=== PATIENT | male | born 1980 | race Two or more races ===

== ENCOUNTER 2016-11-26 07:47 | Emergency (ER) | payer MEDICAID ==
[~2016-11-26] VITALS: Ht 177.8 cm; Wt 81.6 kg
[~2016-11-26 07:47] MED LIST: CARV3.1240 PO; FURO40TA4; LEVE500T3; LISI-283; POTA10TA51 PO; SPIR100T; THIA100T43
[2016-11-26] MEDS ORDERED: SODIUM CHLORIDE 0.9% 1,000 ML IV ONE (08:06)
[2016-11-26] MEDS ORDERED: LORazepam 2MG/ML-1ML VIAL IV ONE (08:15)
[2016-11-26] MEDS ORDERED: LEVETIRACETAM INJ 1,000 MG in SODIUM CHL 0.9% 100 ML IV ONE (08:15)
[2016-11-26 08:43] LABS: Basophils # (auto) 0.1 uL; Basophils % (auto) 1.4 % (0.0-2.0); Eosinophils # (auto) 0.1 uL; Eosinophils % (auto) 0.9 % (0.0-7.0); Hematocrit 39.5 % (41.0-53.0); Hemoglobin 13.6 g/dL (13.5-17.5); Lymphocytes # (auto) 1.2 uL; Lymphocytes % (auto) 16.7 % (10.0-50.0); Mean Corpuscular Hemoglobin 32.8 pg (28.0-32.0); Mean Corpuscular Hgb Conc. 34.6 g/dL (32.0-36.0); Mean Corpuscular Volume 94.9 fL (80.0-100.0); Mean Platelet Volume 8.9 fL (7.4-10.4); Monocytes # (auto) 0.7 uL; Monocytes % (auto) 10.7 % (0.0-12.0); Neutrophils # (auto) 4.9 uL; Neutrophils % (auto) 70.3 % (37.0-80.0); Nucleated Red Blood Cells % 0.1 %; Platelet Count (auto) 175 10^3/uL (140-450); Red Cell Distribution Width 13.6 % (11.6-16.0)
[2016-11-26 09:05] LABS: Albumin 4.1 g/dL (3.4-5.0); Alkaline Phosphatase 81 U/L (45-117); Anion Gap 17 (5-15); Aspartate Aminotransferase 251 U/L (15-37); BUN/Creatinine Ratio 14.2; Bilirubin, Total 1.1 mg/dL (0.2-1.0); Blood Urea Nitrogen 19 mg/dL (7-18); Calcium 9.2 mg/dL (8.5-10.1); Carbon Dioxide 20 mmol/L (21-32); Chloride 95 mmol/L (98-107); GFR African American 77 mL/min; GFR Non-African American 63 mL/min; Glucose 100 mg/dL (74-106); Magnesium 1.2 mg/dL (1.6-2.6); Potassium 3.8 mmol/L (3.5-5.1); Sodium 132 mmol/L (136-145); Total Protein 8.7 g/dL (6.4-8.2)
[2016-11-26 11:10] LABS: Urine RBC None Seen /hpf (0 - 3)
[2016-11-26 11:46] LABS: Urine Blood 2+ /uL (Negative); Urine Color Yellow (Yellow); Urine Glucose Normal (Normal); Urine Hyaline Cast FEW /lpf (0 - 2); Urine Ketone 2+ (Negative); Urine Mucus FEW (None Seen); Urine Nitrite Negative (Negative); Urine Squamous Epithelial Cell FEW /hpf (<5); Urine pH 5.5 (5.0-8.0)
[2016-11-26 11:56] LABS: Urine Bilirubin Negative (Negative)
[2016-11-26] MEDS: MAGNESIUM SULFATE 1GM/100ML 100 ML IV SCH ×3 (13:57→16:25)
[2016-11-26 17:22] VITALS: BP 143/103
== END 2016-11-26 17:46 | disposition home or self-care (01) ==
LOC: EDBD 07:47 → ER 07:47
DX: G40.909 Epilepsy, unspecified, not intractable, without status epilepticus (principal); R42 Dizziness and giddiness; I11.0 Hypertensive heart disease with heart failure; I50.9 Heart failure, unspecified; F12.10 Cannabis abuse, uncomplicated; E83.42 Hypomagnesemia; E03.9 Hypothyroidism, unspecified; F17.210 Nicotine dependence, cigarettes, uncomplicated
CPT/HCPCS: 36415; 70450; 71020; 80053; 80307; 80320; 81001; 83735; 84443; 85025; 93005; 94761; 96361; 96365; 96366; 96367; 96375; 99285; J1953; J2060; J3475; J7030

== ENCOUNTER 2017-12-04 18:30 | Inpatient (IN) | payer SELFPAY ==
[~2017-12-04] VITALS: Ht 177.8 cm; Wt 93.3 kg
[2017-12-04 20:03] LABS: INR 1.5 (0.9-1.15); Partial Thromboplastin Time 27.5 sec (23.78-33.04); Prothrombin Time 15.7 sec (9.27-12.13)
[2017-12-04 20:06] LABS: Albumin 2.5 g/dL (3.4-5.0); BUN/Creatinine Ratio 23.1; Calcium 7.9 mg/dL (8.5-10.1); Magnesium 1.7 mg/dL (1.6-2.6); Potassium 3.9 mmol/L (3.5-5.1)
[2017-12-04 20:11] LABS: Bilirubin, Total 2.5 mg/dL (0.2-1.0); Total Protein 6.6 g/dL (6.4-8.2)
[2017-12-04 20:24] LABS: Hematocrit 45.3 % (41.0-53.0); Hemoglobin 15.1 g/dL (13.5-17.5); Mean Corpuscular Hemoglobin 31.7 pg (28.0-32.0); Mean Corpuscular Hgb Conc. 33.3 g/dL (32.0-36.0); Mean Corpuscular Volume 95.2 fL (80.0-100.0); Platelet Count (auto) 134 10^3/uL (140-450); Red Blood Cells 4.76 10^6/uL (4.5-5.90); Red Cell Distribution Width 17.6 % (11.8-14.3); White Blood Cell 4.6 10^3/uL (4.4-10.8)
[2017-12-04 20:33] LABS: Basophils % (manual) 0 (0.0-2.0); Blast Cells 0; Eosinophils % (manual) 0 (0-7); Myelocytes % 0; Promyelocytes % 0; Reactive Lymphocytes 0
[2017-12-04] MEDS ORDERED: FUROSEMIDE 20 MG/2 ML VIAL IV ONE (20:45)
[2017-12-04] MEDS ORDERED: SPIRONOLACTONE 25 MG TAB PO ONE (20:45)
[2017-12-04 20:55] LABS: Band Neutrophils % (manual) 3; Lymphocytes % (manual) 23 (10.0-50.0); Metamyelocytes % 1; Monocytes % (manual) 18 (0-12)
[2017-12-04] MEDS ORDERED: FUROSEMIDE 20 MG/2 ML VIAL ONE (20:57)
[2017-12-04] MEDS ORDERED: SPIRONOLACTONE 25 MG TAB ONE (20:58)
[2017-12-04 22:35] LABS: Urine WBC None Seen /hpf (0 - 3)
[2017-12-04 22:44] LABS: Urine Bacteria NONE SEEN /hpf (None Seen); Urine Blood Negative /uL (Negative); Urine Specific Gravity 1.005 (1.001-1.035)
[2017-12-04] MEDS ORDERED: NITROGLYCERIN 0.4 MG SL TAB SL PRN (23:15)
[2017-12-04] MEDS ORDERED: MORPHINE SULFATE 4 MG/ML SYR/VIAL IV PRN (23:15)
[2017-12-04] MEDS ORDERED: TEMAZEPAM 15 MG CAP PO PRN (23:15)
[2017-12-04] MEDS ORDERED: ONDANSETRON HCL 4 MG/2 ML VIAL IV PRN (23:15)
[2017-12-04] MEDS ORDERED: PANTOPRAZOLE 40 MG/10 ML VIAL IV ONE (23:30)
[2017-12-05 00:10] VITALS: BP 117/85
[2017-12-05 04:51] VITALS: BP 104/79
[2017-12-05] MEDS: FUROSEMIDE 20 MG/2 ML VIAL IV SCH ×2 (05:49→18:10)
[2017-12-05 05:56] LABS: Hematocrit 43.5 % (41.0-53.0); Hemoglobin 14.6 g/dL (13.5-17.5); Mean Corpuscular Hemoglobin 31.6 pg (28.0-32.0); Mean Corpuscular Hgb Conc. 33.5 g/dL (32.0-36.0); Mean Corpuscular Volume 94.1 fL (80.0-100.0); Platelet Count (auto) 131 10^3/uL (140-450); Red Blood Cells 4.62 10^6/uL (4.5-5.90); Red Cell Distribution Width 17.1 % (11.8-14.3); White Blood Cell 5.2 10^3/uL (4.4-10.8)
[2017-12-05 06:19] LABS: Albumin 2.6 g/dL (3.4-5.0); Calcium 8.6 mg/dL (8.5-10.1); Potassium 3.7 mmol/L (3.5-5.1); Total Protein 6.8 g/dL (6.4-8.2)
[2017-12-05 07:42] LABS: Band Neutrophils % (manual) 0; Basophils % (manual) 0 (0.0-2.0); Eosinophils % (manual) 0 (0-7); Metamyelocytes % 0
[2017-12-05 07:43] LABS: Blast Cells 0; Myelocytes % 0; Promyelocytes % 0; Reactive Lymphocytes 0
[2017-12-05 08:46] LABS: Lymphocytes % (manual) 30 (10.0-50.0); Monocytes % (manual) 16 (0-12)
[2017-12-05 09:00] VITALS: BP 120/95
[2017-12-05] MEDS: PANTOPRAZOLE 40 MG/10 ML VIAL IV SCH (09:35)
[2017-12-05] MEDS: LEVETIRACETAM 500 MG TAB PO SCH ×2 (09:36→22:28)
[2017-12-05] MEDS: SPIRONOLACTONE 25 MG TAB PO SCH (09:36)
[2017-12-05] MEDS: LISINOPRIL 5 MG TAB PO SCH (09:37)
[2017-12-05] MEDS: POTASSIUM CHL 10 Meq TABLET PO SCH (09:37)
[2017-12-05] MEDS: CARVEDILOL 3.125 MG TAB PO SCH ×2 (09:38→22:28)
[2017-12-05] MEDS ORDERED: LACTULOSE 20Gm/30ML SOLN PO SCH (10:00)
[2017-12-05 13:00] VITALS: BP 122/97
[2017-12-05 17:31] VITALS: BP 123/96
[2017-12-05 22:00] VITALS: BP 118/82
[2017-12-05] MEDS: LACTULOSE 20Gm/30ML SOLN PO SCH (22:27)
[2017-12-06 05:00] VITALS: BP 98/68
[2017-12-06 06:00] VITALS: BP 105/66
[2017-12-06] MEDS: FUROSEMIDE 20 MG/2 ML VIAL IV SCH ×2 (06:22→18:11)
[2017-12-06 09:00] VITALS: BP 113/83
[2017-12-06] MEDS: LISINOPRIL 5 MG TAB PO SCH (10:00)
[2017-12-06] MEDS: LEVETIRACETAM 500 MG TAB PO SCH ×2 (10:44→21:24)
[2017-12-06] MEDS: POTASSIUM CHL 10 Meq TABLET PO SCH (10:44)
[2017-12-06] MEDS: SPIRONOLACTONE 25 MG TAB PO SCH (10:45)
[2017-12-06] MEDS: PANTOPRAZOLE 40 MG/10 ML VIAL IV SCH (10:47)
[2017-12-06] MEDS: LACTULOSE 20Gm/30ML SOLN PO SCH ×2 (10:47→21:30)
[2017-12-06] MEDS: CARVEDILOL 3.125 MG TAB PO SCH ×2 (10:48→21:25)
[2017-12-06 13:00] VITALS: BP 112/82
[2017-12-06 17:48] VITALS: BP 103/80
[2017-12-06 22:00] VITALS: BP 111/73
[2017-12-07 05:00] VITALS: BP 99/74
[2017-12-07] MEDS: FUROSEMIDE 20 MG/2 ML VIAL IV SCH ×2 (07:15→18:00)
[2017-12-07 09:00] VITALS: BP 99/77
[2017-12-07] MEDS: LACTULOSE 20Gm/30ML SOLN PO SCH ×2 (09:19→22:04)
[2017-12-07] MEDS: LEVETIRACETAM 500 MG TAB PO SCH ×2 (09:19→22:03)
[2017-12-07] MEDS: POTASSIUM CHL 10 Meq TABLET PO SCH (09:19)
[2017-12-07] MEDS: PANTOPRAZOLE 40 MG/10 ML VIAL IV SCH (09:19)
[2017-12-07] MEDS: SPIRONOLACTONE 25 MG TAB PO SCH (09:21)
[2017-12-07] MEDS: LISINOPRIL 5 MG TAB PO SCH (10:00)
[2017-12-07] MEDS: CARVEDILOL 3.125 MG TAB PO SCH ×2 (10:27→22:04)
[2017-12-07 11:53] LABS: Hepatitis C Antibody Negative (Negative)
[2017-12-07 11:59] LABS: Hepatitis B Core Total AB Negative
[2017-12-07 12:00] LABS: Hepatitis A Total Antibody Negative
[2017-12-07 12:15] LABS: Hepatitis B Surface Antibody Negative; Hepatitis B Surface Antigen Negative (Negative)
[2017-12-07 13:00] VITALS: BP 85/68
[2017-12-07] MEDS ORDERED: chlordiazePOXIDE HCL 25 MG CAP PO PRN (15:00)
[2017-12-07 17:00] VITALS: BP 106/67
[2017-12-07 21:12] VITALS: BP 93/72
[2017-12-08 04:49] VITALS: BP 96/66
[2017-12-08] MEDS: FUROSEMIDE 20 MG/2 ML VIAL IV SCH (06:08)
[2017-12-08 08:00] VITALS: BP 97/68
[2017-12-08] MEDS: PANTOPRAZOLE 40 MG/10 ML VIAL IV SCH (09:21)
[2017-12-08] MEDS: LEVETIRACETAM 500 MG TAB PO SCH (09:21)
[2017-12-08] MEDS: SPIRONOLACTONE 25 MG TAB PO SCH (09:21)
[2017-12-08] MEDS: LACTULOSE 20Gm/30ML SOLN PO SCH (09:21)
[2017-12-08] MEDS: POTASSIUM CHL 10 Meq TABLET PO SCH (09:21)
[2017-12-08] MEDS: LISINOPRIL 5 MG TAB PO SCH (10:00)
[2017-12-08] MEDS: CARVEDILOL 3.125 MG TAB PO SCH (10:00)
[2017-12-08] MEDS ORDERED: chlordiazePOXIDE HCL 25 MG CAP PO SCH (10:00)
[2017-12-08 12:00] VITALS: BP 97/72
== END 2017-12-08 14:00 | disposition home or self-care (01) | DRG 292 ==
LOC: ER 18:36 → TELE 18:37 → TELE-WESTW 23:55
PROVIDERS: ADMIT Nurse Practitioner; ATTEND Family Medicine
DX: I11.0 Hypertensive heart disease with heart failure (principal); K76.6 Portal hypertension; E72.20 Disorder of urea cycle metabolism, unspecified; F17.210 Nicotine dependence, cigarettes, uncomplicated; I50.43 Acute on chronic combined systolic (congestive) and diastolic (congestive) heart failure; I42.0 Dilated cardiomyopathy; I27.20 Pulmonary hypertension, unspecified; K70.31 Alcoholic cirrhosis of liver with ascites; R56.9 Unspecified convulsions; Z82.49 Family history of ischemic heart disease and other diseases of the circulatory system; Z82.5 Family history of asthma and other chronic lower respiratory diseases; Z91.14 Patient's other noncompliance with medication regimen; Z83.3 Family history of diabetes mellitus; Z91.19 Patient's noncompliance with other medical treatment and regimen; Z71.41 Alcohol abuse counseling and surveillance of alcoholic
CPT/HCPCS: 36415; 70450; 71045; 74176; 80053; 81001; 82140; 83735; 83880; 84484; 85007; 85027; 85610; 85730; 86704; 86706; 86708; 86803; 87340; 93005; 93306; 96374; 96375; C9113

== ENCOUNTER 2019-01-21 15:22 | Inpatient (IN) | payer MEDICAID ==
[~2019-01-21] VITALS: Ht 177.8 cm; Wt 70.2 kg
[2019-01-21] MEDS ORDERED: SODIUM CHLORIDE 0.9% 1,000 ML IV ONE ×2 (16:04→18:15)
[2019-01-21 16:33] LABS: Urine Bacteria NONE SEEN /hpf (None Seen); Urine Blood Negative /uL (Negative); Urine Mucus FEW (None Seen); Urine Specific Gravity 1.007 (1.001-1.035); Urine WBC <1 /hpf (0 - 3)
[2019-01-21 16:36] LABS: Basophils # (auto) 0 uL; Basophils % (auto) 0.7 % (0.0-2.0); Eosinophils # (auto) 0.3 uL; Hematocrit 38.4 % (41.0-53.0); Hemoglobin 12.6 g/dL (13.5-17.5); Lymphocytes # (auto) 2.2 uL; Lymphocytes % (auto) 37.4 % (10.0-50.0); Mean Corpuscular Hemoglobin 29.1 pg (28.0-32.0); Mean Corpuscular Volume 88.2 fL (80.0-100.0); Monocytes # (auto) 0.5 uL; Monocytes % (auto) 8.7 % (0.0-12.0); Neutrophils # (auto) 2.9 uL; Neutrophils % (auto) 48.2 % (37.0-80.0); Nucleated Red Blood Cells % 0.1 %; Platelet Count (auto) 246 10^3/uL (140-450); Red Blood Cells 4.35 10^6/uL (4.5-5.90); Red Cell Distribution Width 13.4 % (11.8-14.3); White Blood Cell 5.9 10^3/uL (4.4-10.8)
[2019-01-21 16:45] LABS: Albumin 4.3 g/dL (3.4-5.0); Calcium 9.6 mg/dL (8.5-10.1); Potassium 4.9 mmol/L (3.5-5.1)
[2019-01-21 16:48] LABS: BUN/Creatinine Ratio 27.1; Bilirubin, Total 0.3 mg/dL (0.2-1.0); Total Protein 8.7 g/dL (6.4-8.2)
[2019-01-21] MEDS ORDERED: TEMAZEPAM 15 MG CAP PO PRN (18:15)
[2019-01-21] MEDS ORDERED: NITROGLYCERIN 0.4 MG SL TAB SL PRN (18:15)
[2019-01-21] MEDS ORDERED: traMADol HCL 50 MG TAB PO PRN (18:15)
[2019-01-21] MEDS ORDERED: PROMETHAZINE HCL 25 MG/ML 1ML IV PRN (18:15)
[2019-01-21] MEDS ORDERED: ACETAMINOPHEN 500 MG TAB PO PRN (18:15)
[2019-01-21] MEDS ORDERED: MORPHINE SULF INJ 2 MG/ML SYRINGE 1ML IV PRN (18:15)
[2019-01-21 19:08] LABS: Alcohol, Urine < 3.0 mg/dL (0-5); Amphetamine Screen, Urine NEGATIVE (NEGATIVE); Barbiturate Scree,Urine NEGATIVE (NEGATIVE); Benzodiazephine Screen, Urine NEGATIVE (NEGATIVE); Cannabinoid Screen, Urine POSITIVE (NEGATIVE); Cocaine Screen, Urine NEGATIVE (NEGATIVE); Phencyclidine Screen, Urine NEGATIVE (NEGATIVE)
[2019-01-21 19:15] LABS: Opiate Scree,Urine NEGATIVE (NEGATIVE)
[2019-01-21] MEDS: SODIUM CHLORIDE 0.9% 1,000 ML IV SCH (21:55)
[2019-01-22] VITALS (11 sets, daily range): BP systolic 98–121; BP diastolic 61–74
[2019-01-22] MEDS ORDERED: SODIUM CHLORIDE 0.9% 1,000 ML IV ONE (00:15)
[2019-01-22] MEDS: SODIUM CHLORIDE 0.9% 1,000 ML IV SCH ×2 (04:10→14:07)
[2019-01-22 07:25] LABS: Albumin 3.5 g/dL (3.4-5.0); Anion Gap 6 (5-15); Blood Urea Nitrogen 64 mg/dL (7-18); Calcium 8.6 mg/dL (8.5-10.1); Carbon Dioxide 21 mmol/L (21-32); Chloride 114 mmol/L (98-107); Glucose 95 mg/dL (74-106); Potassium 5.2 mmol/L (3.5-5.1); Sodium 141 mmol/L (136-145)
--- NOTE | 2019-01-22 07:30 | NUR ---
ASSESS- PT. LYING ON [facility] ER OVERFLOW DOUR PT. AWAKE, ALERT AND ORIENTED TIMES FOUR. NO PAIN OR DISCOMFORT. NO LIGHTHEADNESS OR DIZZYNESS. LUNGS CLEAR APRIL. INSPIRATORY AND EXPIRATORY. NO SOB. ON R/A. ABD. SOFT, FLAT, NON-TENDER. BOWEL SOUNDS ALL FOUR QUADRANTS. NO N/V. VOIDING VIA URINAL WITHOUT DIFFICULTY CLEAR YELLOW URINE. RADIAL PULSES STRONG, PALPABLE APRIL. DORSALIS PEDAL PULSES STRONG, PALPABLE APRIL. NO EDEMA. SKIN INTACT. PT. MOVES ALL EXTREMITIES WITHOUT DIFFICULTY. ABLE TO TURN SELF IN BED. SR, HR 60'S WITHOUT ECTOPY. SBP 100'S.
[2019-01-22 07:32] LABS: Alanine Aminotransferase 21 U/L (16-61); Alkaline Phosphatase 73 U/L (45-117); Aspartate Aminotransferase 17 U/L (15-37); BUN/Creatinine Ratio 32.3; Bilirubin, Total 0.5 mg/dL (0.2-1.0); GFR African American 48 mL/min; GFR Non-African American 40 mL/min; Total Protein 7.1 g/dL (6.4-8.2)
--- NOTE | 2019-01-22 09:15 | NUR ---
VISITORS AT THE .
[2019-01-22 09:35] LABS: Creatinine, Urine 39 mg/dL (30.0-125.0); Sodium Urine 147 mmol/L (40-220)
[2019-01-22] MEDS: PANTOPRAZOLE 40 MG TAB PO SCH (09:36)
--- NOTE | 2019-01-22 11:00 | NUR ---
SBP UPPER 90'S-100'S. SR, HR 60'S WITHOUT ECTOPY.
--- NOTE | 2019-01-22 14:15 | NUR ---
PT. HAD 2D ECHO DONE.
[2019-01-22] MEDS ORDERED: SODIUM CHLORIDE 0.9% 1,000 ML IV SCH (15:45)
--- NOTE | 2019-01-22 18:00 | NUR ---
SBP REMAINS IN THE 100'S. SR, HR 60'S WITHOUT ECTOPY.
--- NOTE | 2019-01-22 20:35 | NUR ---
Telemetry admit from [facility]IR[facility] CORDON admitted to Telemetry unit after SBAR received. Patient oriented to TAYLOR ANDRADE, RN primary RN, unit, room, bed, and unit policies regarding patient care and visiting hours. Patient now on continuous telemetry monitoring, tele box [id number] and telemetry reading on arrival to unit is NSR. Patient weighed by bedscale and encouraged to call if they need something. All questions and concerns addressed, patient verbalized understanding.
[2019-01-22] MEDS ORDERED: HYDR25TA4 PO (23:23)
[2019-01-23 05:35] VITALS: BP 113/80
[2019-01-23 06:52] LABS: BUN/Creatinine Ratio 22.6
[2019-01-23 09:00] VITALS: BP 109/63
[2019-01-23] MEDS: PANTOPRAZOLE 40 MG TAB PO SCH (09:53)
[2019-01-23 13:00] VITALS: BP 109/77
--- NOTE | 2019-01-23 13:25 | NUR ---
Spoke with Dr. Stein, accounts receivable collector. Informed him that URIEL Arias, has requested cardiology to speak to the patient and explain echo results. Dr. Stein states he will come see the patient.
--- NOTE | 2019-01-23 14:22 | NUR ---
Dr. Stein in to see patient for cardiology. Patient cleared for discharge.
--- NOTE | 2019-01-23 14:27 | NUR ---
Per Dr. Stein, patient to be discharged with Coreg 3.125 mg PO q 12 hrs.
== END 2019-01-23 15:20 | disposition home or self-care (01) | DRG 469 ==
LOC: ER 15:22 → OVERFLOW 15:23 → TELE-WESTW 01-22 20:35
PROVIDERS: ADMIT Internal Medicine; ATTEND Internal Medicine
DX: N17.0 Acute kidney failure with tubular necrosis (principal); I95.9 Hypotension, unspecified; I42.6 Alcoholic cardiomyopathy; I13.0 Hypertensive heart and chronic kidney disease with heart failure and stage 1 through stage 4 chronic kidney disease, or unspecified chronic kidney disease; E87.5 Hyperkalemia; I50.9 Heart failure, unspecified; K76.6 Portal hypertension; E86.0 Dehydration; D64.9 Anemia, unspecified; F10.239 Alcohol dependence with withdrawal, unspecified; Y90.9 Presence of alcohol in blood, level not specified; F17.210 Nicotine dependence, cigarettes, uncomplicated; K70.9 Alcoholic liver disease, unspecified; R56.9 Unspecified convulsions; T50.2X5A Adverse effect of carbonic-anhydrase inhibitors, benzothiadiazides and other diuretics, initial encounter; Y92.89 Other specified places as the place of occurrence of the external cause; Z82.49 Family history of ischemic heart disease and other diseases of the circulatory system; Z82.5 Family history of asthma and other chronic lower respiratory diseases; Z83.3 Family history of diabetes mellitus
CPT/HCPCS: 36415; 71045; 76775; 80048; 80053; 80307; 81001; 82550; 82570; 83880; 84156; 84166; 84300; 84484; 85025; 85652; 93306; 96360; G0378